=== PATIENT | female | born 2000 | race Caucasian/White ===

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

== ENCOUNTER 2020-02-04 09:44 | Outpatient (CLI) | payer OTHER, SELFPAY ==
[2020-02-09 12:32] LABS: SARS-CoV-2 RNA Undetected (Undetected)
== END 2020-02-04 10:04 ==
PROVIDERS: PCP Pediatrics; Visit Provider Pediatrics
DX: Z11.59 Encounter for screening for other viral diseases (principal)
CPT/HCPCS: U0003

== ENCOUNTER 2020-06-27 22:21 | Outpatient (REF) | payer OTHER, SELFPAY ==
[2020-06-30 14:15] LABS: Chlamydia Result Negative (Negative); GC Result Negative (Negative)
== END 2020-06-27 22:41 ==
LOC: NCHCN 22:21
PROVIDERS: PCP Physician Assistant Medical; Visit Provider Physician Assistant Medical
DX: Z00.00 Encounter for general adult medical examination without abnormal findings (principal); Z11.3 Encounter for screening for infections with a predominantly sexual mode of transmission
CPT/HCPCS: 87491; 87591

== ENCOUNTER 2021-06-02 12:36 | Outpatient (REF) | payer OTHER, SELFPAY ==
--- NOTE | 2021-06-02 11:30 | PAPFT_PTH ---
PATIENT: Tamra Vo LOC: [facility] U#:[id number] AGE/SX: 21/F ROOM: RE06/02/[address]: Susanne Archuleta NP : 2000 BED: DIS: 06/02/2021 SPEC #: [id number] RECD: 06/02/21 13:00 STATUS: JOHANA MILLS #: [id number] AYE: 06/02/21 11:[address]: Susanne Archuleta NP DEPT: [facility] Cytology RECD BY: Agnes Tompkins Tissues: 1 - CX/ENDOCX FOR PAP SMEARS Procedures: PAP THIN PREP/UVM Screening Comments: [id number] (CHLAMYDIA/GC)
[2021-06-17 15:37] LABS: Chlamydia Result Negative (Negative); GC Result Negative (Negative)
== END 2021-06-02 12:37 | disposition home or self-care (01) ==
LOC: LBN 12:36
PROVIDERS: Visit Provider Nurse Practitioner Women's Health
DX: Z12.4 Encounter for screening for malignant neoplasm of cervix (principal); Z11.3 Encounter for screening for infections with a predominantly sexual mode of transmission
CPT/HCPCS: 87491; 87591; 88142

== ENCOUNTER 2021-11-03 15:17 | Outpatient (REF) | payer OTHER, SELFPAY ==
[2021-11-03 14:43] LABS: Abs Immature Grans 0.01 10^3/uL (0.0-0.06); Absolute Basophil Count 0.03 10^3/uL (0.0-0.2); Absolute Eosinophil Count 0.07 10^3/uL (0.0-0.7); Absolute Lymphocyte Count 2.25 10^3/uL (1.2-3.4); Absolute Monocyte Count 0.65 10^3/uL (0.1-0.8); Absolute Neutrophil Count 3.43 10^3/uL (1.2-6.7); Basophils % 0.5; Eosinophils % 1.1; HGB 13.1 g/dL (11.2-15.7); Immature Grans % 0.2; Lymphocytes % 34.9; MCH 29.4 pg (27.0-33.0); MCHC 32.8 % (32.0-36.0); MCV 90 fL (80-95); MPV 10.8 fL (8.0-11.0); Monocytes % 10.1; Neutrophils % 53.2; Platelet Count 263 10^3/uL (130-400); RBC 4.45 10^6/uL (3.93-5.22); RDW 11.9 % (11.7-14.6); RDW-SD 39.2 fL; WBC 6.44 10^3/uL (4.4-10.8)
[2021-11-03 14:52] LABS: Hemoglobin A1C 5.4 % (<5.7)
[2021-11-03 15:04] LABS: ALT 20 U/L (14-59); AST 16 U/L (15-37); Albumin 4.1 g/dL (3.4-5.0); Alkaline Phosphatase 59 U/L (46-116); Anion Gap 10.2 mmol/L (3-11); BUN 16 mg/dL (7-18); Bilirubin, Total 0.5 mg/dL (0.2-1.0); CO2 24.8 mmol/L (21.0-32.0); CREATININE 0.9 mg/dL (0.55-1.02); Calcium 8.4 mg/dL (8.5-10.1); Chloride 106 mmol/L (98-107); Glucose 87 mg/dL (74-106); Sodium 141 mmol/L (136-145); TSH (W/Ref FT4) 2.28 uIU/mL (0.36-3.74); Total Protein 7.4 g/dL (6.4-8.2)
== END 2021-11-03 15:18 | disposition home or self-care (01) ==
LOC: NCHCN 15:17
PROVIDERS: PCP Physician Assistant Medical; Visit Provider Physician Assistant Medical
DX: R35.0 Frequency of micturition (principal); R53.83 Other fatigue
CPT/HCPCS: 80053; 83036; 84443; 85025

== ENCOUNTER 2022-08-17 11:25 | Outpatient (REF) | payer OTHER, SELFPAY ==
[2022-08-18 13:50] LABS: Chlamydia Result Negative (Negative); GC Result Negative (Negative)
== END 2022-08-17 11:26 | disposition home or self-care (01) ==
LOC: LBN 11:25
PROVIDERS: PCP Physician Assistant Medical; Visit Provider Nurse Practitioner Women's Health
DX: Z11.3 Encounter for screening for infections with a predominantly sexual mode of transmission (principal)
CPT/HCPCS: 87491; 87591

== ENCOUNTER 2023-07-20 15:29 | Outpatient (REF) | payer OTHER, SELFPAY ==
[2023-07-22 13:11] LABS: Chlamydia Result Negative (Negative); GC Result Negative (Negative)
== END 2023-07-20 15:30 | disposition home or self-care (01) ==
LOC: LBN 15:29
PROVIDERS: PCP Physician Assistant Medical; Visit Provider Obstetrics & Gynecology
DX: Z11.3 Encounter for screening for infections with a predominantly sexual mode of transmission (principal)
CPT/HCPCS: 87491; 87591

== ENCOUNTER 2024-07-23 14:22 | Outpatient (REF) | payer OTHER, SELFPAY ==
--- NOTE | 2024-07-23 14:00 | PAPFT_PTH ---
PATIENT: Tamra Vo LOC: [facility] U#:[id number] AGE/SX: 24/F ROOM: RE07/23/[address]: Frieda Tilley DO : 2000 BED: DIS: 07/23/2024 SPEC #: [id number] RECD: 07/23/24 18:03 STATUS: JOHANA REQ #: [id number] AYE: 07/23/24 14:[address]: Frieda Tilley DEPT: COUNTS INCLUDE 234 BEDS AT THE [facility] Cytology RECD BY: Agnes Tompkins ENTERED: 07/23/24 18:03 SP TYPE: PAPFT OTHR DR: Armen Jacobo Tissues: 1 - CX/ENDOCX FOR PAP SMEARS Procedures: PAP THIN PREP/UVM Screening HPV DNA PROBE Comments: [id number] (HPV 16 & 18/45) (CHLAMYDIA/GC)
[2024-07-24 12:46] LABS: Chlamydia Result Negative (Negative); GC Result Negative (Negative)
== END 2024-07-23 14:23 | disposition home or self-care (01) ==
LOC: LBN 14:22
PROVIDERS: PCP Physician Assistant Medical; Visit Provider Obstetrics & Gynecology
DX: Z01.419 Encounter for gynecological examination (general) (routine) without abnormal findings (principal); D68.59 Other primary thrombophilia; N77.1 Vaginitis, vulvitis and vulvovaginitis in diseases classified elsewhere
CPT/HCPCS: 87491; 87591; 88142; 87624